=== PATIENT | female | born 1950 | race Caucasian/White ===

== ENCOUNTER 2023-02-03 14:56 | Observation (INO) | payer MEDICARE ==
[~2023-02-03 14:56] MED LIST: Iopamidol 370 76% 100 ML VIAL ONE
[2023-02-03] MEDS ORDERED: Aspirin Chewable 81 MG TAB ONE (15:04)
[2023-02-03 15:19] LABS: #Basophils 0.1 10x3/uL (0.0-0.2); #Eosinphils 0.2 10x3/uL (0.0-0.5); #Monocytes 0.4 10x3/uL (0.0-1.1); #Neutrophils 7.3 10x3/uL (1.5-8.4); %Basophils 0.6 % (0.0-2.0); %Lymphocytes 20.4 % (18.0-47.0); %Monocytes 4.2 % (0.0-10.0); %Neutrophils 72.5 % (40.0-75.0); Hematocrit 38.3 % (34.9-44.5); Hemoglobin 12.5 g/dL (12.0-15.5); Mean Corpuscular HGB CONC 32.6 g/dL (32.0-36.0); Mean Corpuscular Hemoglobin 29.3 pg (27.0-33.0); Mean Corpuscular Volume 89.7 fl (81.6-98.3); Mean Platelet Volume 9.8 fl (7.4-10.4); Platelet Count 326 10x3/uL (150-450); RBC Distribution Width 12.8 % (11.5-14.5); Red Blood Cell (RBC) Count 4.27 10x6/uL (3.90-5.03); White Blood Cell (WBC) Count 10.1 10x3/uL (3.5-10.5)
[2023-02-03 15:23] LABS: ALT (SGPT) 16 U/L (8-55); AST (SGOT) 15 U/L (5-34); Albumin 4.3 g/dL (3.4-4.8); Alkaline Phosphatase 71 U/L (40-110); Anion Gap 18 mmol/L (10-20); BUN (Urea Nitrogen) 22 mg/dL (9.8-20.1); Bilirubin, Total 0.3 mg/dL (0.2-1.2); Calc. Creatinine Clearance 0 mL/min (70-130); Calcium 9.2 mg/dL (7.8-10.44); Carbon Dioxide 20 mmol/L (23-31); Chloride 103 mmol/L (98-107); Estimated GFR 59; Globulin 2.4 g/dL (2.4-3.5); Glucose 240 mg/dL (83-110); Lipase 37 U/L (8-78); Potassium 4.2 mmol/L (3.5-5.1); Protein, Total 6.7 g/dL (5.8-8.1); Sodium 137 mmol/L (136-145)
[2023-02-03 15:27] LABS: Troponin I 0.029 ng/mL (< 0.028)
[2023-02-03] MEDS ORDERED: Ondansetron PF 4 MG/2 ML Vial ONE (15:27)
[2023-02-03] MEDS ORDERED: Morphine 4 MG/ML VIAL ONE ×2 (15:27→16:51)
[2023-02-03] MEDS ORDERED: Clopidogrel Bisulfate 75 MG TAB ONE (16:51)
[2023-02-03] MEDS ORDERED: Ondansetron ODT 4 MG TAB PO PRN (17:10)
[2023-02-03] MEDS ORDERED: Acetaminophen 325 MG TAB PO PRN (17:10)
[2023-02-03 18:18] LABS: Troponin I 0.092 ng/mL (< 0.028)
[2023-02-03 19:55] VITALS: BMI 36.3
[2023-02-03] MEDS: Nitroglycerin 0.4 MG TAB (25 Tab Bottle) SL PRN ×2 (20:44→22:44)
[2023-02-03 21:58] LABS: Troponin I 0.517 ng/mL (< 0.028)
[2023-02-04 04:45] LABS: #Basophils 0.1 10x3/uL (0.0-0.2); #Eosinphils 0.3 10x3/uL (0.0-0.5); #Monocytes 0.6 10x3/uL (0.0-1.1); #Neutrophils 4.5 10x3/uL (1.5-8.4); %Basophils 0.8 % (0.0-2.0); %Lymphocytes 37.1 % (18.0-47.0); %Monocytes 6.9 % (0.0-10.0); %Neutrophils 51.9 % (40.0-75.0); Hematocrit 34.2 % (34.9-44.5); Mean Corpuscular HGB CONC 32.2 g/dL (32.0-36.0); Mean Corpuscular Volume 90.2 fl (81.6-98.3); Mean Platelet Volume 9.9 fl (7.4-10.4); Platelet Count 284 10x3/uL (150-450); RBC Distribution Width 12.9 % (11.5-14.5); Red Blood Cell (RBC) Count 3.79 10x6/uL (3.90-5.03); White Blood Cell (WBC) Count 8.6 10x3/uL (3.5-10.5)
[2023-02-04 05:01] LABS: Anion Gap 15 mmol/L (10-20); BUN (Urea Nitrogen) 24 mg/dL (9.8-20.1); Calc. Creatinine Clearance 81 mL/min (70-130); Calcium 8.8 mg/dL (7.8-10.44); Carbon Dioxide 22 mmol/L (23-31); Chloride 105 mmol/L (98-107); Estimated GFR 67; Glucose 138 mg/dL (83-110); Potassium 4.2 mmol/L (3.5-5.1); Sodium 138 mmol/L (136-145)
[2023-02-04] MEDS: Nitroglycerin 0.4 MG TAB (25 Tab Bottle) SL PRN (06:48)
[2023-02-04] MEDS ORDERED: Dextrose 50% Abboject 50 ML SYRINGE SLOW IVP PRN (07:56)
[2023-02-04] MEDS ORDERED: Dextrose 5% in Water 1,000 ML IV PRN (07:56)
[2023-02-04] MEDS ORDERED: Glucagon 1 MG/ML KIT IM PRN (07:56)
[2023-02-04] MEDS ORDERED: HumaLOG 300 UNITS/3 ML VIAL SC PRN ×2 (07:56)
[2023-02-04] MEDS: FLUoxetine HCl 20 MG CAP PO SCH (08:58)
[2023-02-04] MEDS: Aspirin Chewable 81 MG TAB PO SCH (08:59)
[2023-02-04] MEDS: busPIRone HCl 5 MG TAB PO SCH ×2 (08:59→21:31)
[2023-02-04] MEDS ORDERED: Metoprolol Tartrate 25 MG TAB PO SCH ×2 (09:00→10:30)
[2023-02-04] MEDS ORDERED: Levothyroxine Sodium 125 MCG TAB PO SCH (09:00)
[2023-02-04] MEDS: Lactated Ringer's 1,000 ML IV SCH ×2 (09:20→18:46)
[2023-02-04] MEDS ORDERED: Communication Order-Pharmacy FS SCH (11:15)
[2023-02-04] MEDS: Nitroglycerin 2% Ointment 1 INCH/1 GM Packet TOP SCH ×2 (13:24→21:32)
[2023-02-04] MEDS ORDERED: Atorvastatin Calcium 20 MG TAB PO SCH (21:00)
[2023-02-04] MEDS ORDERED: Atorvastatin Calcium 40 MG TAB PO SCH (21:00)
[2023-02-04] MEDS: Metoprolol Tartrate 25 MG TAB PO SCH (21:31)
[2023-02-05 04:36] LABS: #Basophils 0.1 10x3/uL (0.0-0.2); #Eosinphils 0.3 10x3/uL (0.0-0.5); #Monocytes 0.6 10x3/uL (0.0-1.1); #Neutrophils 4.1 10x3/uL (1.5-8.4); %Basophils 0.6 % (0.0-2.0); %Eosinophils 3.5 % (0.0-6.0); %Lymphocytes 35.8 % (18.0-47.0); %Monocytes 7.1 % (0.0-10.0); %Neutrophils 52.7 % (40.0-75.0); Hematocrit 36.3 % (34.9-44.5); Hemoglobin 11.7 g/dL (12.0-15.5); Mean Corpuscular HGB CONC 32.2 g/dL (32.0-36.0); Mean Corpuscular Hemoglobin 29.2 pg (27.0-33.0); Mean Corpuscular Volume 90.5 fl (81.6-98.3); Platelet Count 309 10x3/uL (150-450); RBC Distribution Width 12.5 % (11.5-14.5); Red Blood Cell (RBC) Count 4.01 10x6/uL (3.90-5.03); White Blood Cell (WBC) Count 7.8 10x3/uL (3.5-10.5)
[2023-02-05 04:47] LABS: PTT 36.5 sec (22.0-33.0); Prothrombin Time 10.9 sec (9.5-12.1)
[2023-02-05 04:52] LABS: ALT (SGPT) 14 U/L (8-55); AST (SGOT) 27 U/L (5-34); Alkaline Phosphatase 61 U/L (40-110); Anion Gap 15 mmol/L (10-20); BUN (Urea Nitrogen) 14 mg/dL (9.8-20.1); Bilirubin, Direct 0.2 mg/dL (0.1-0.3); Bilirubin, Total 0.4 mg/dL (0.2-1.2); Calc. Creatinine Clearance 91 mL/min (70-130); Calcium 9.5 mg/dL (7.8-10.44); Carbon Dioxide 25 mmol/L (23-31); Chloride 101 mmol/L (98-107); Estimated GFR 78; Globulin 2.6 g/dL (2.4-3.5); Glucose 143 mg/dL (83-110); Magnesium 1.5 mg/dL (1.6-2.6); Protein, Total 6.6 g/dL (5.8-8.1); Sodium 137 mmol/L (136-145)
[2023-02-05 05:14] LABS: Cardiac Risk 2.8 (Less than 4.5); Cholesterol 159 mg/dl (< 200 Desired); HDL Cholesterol 57 mg/dL (>60 Neg Risk); LDL Cholesterol, Calculated 55 mg/dL; Triglycerides 237 mg/dL (Less than 150)
[2023-02-05] MEDS ORDERED: Levothyroxine Sodium 125 MCG TAB PO SCH (06:00)
[2023-02-05] MEDS: Lactated Ringer's 1,000 ML IV SCH (06:06)
[2023-02-05] MEDS: Aspirin Chewable 81 MG TAB PO SCH (06:07)
[2023-02-05] MEDS: busPIRone HCl 5 MG TAB PO SCH (06:08)
[2023-02-05] MEDS: FLUoxetine HCl 20 MG CAP PO SCH (06:08)
[2023-02-05] MEDS: Metoprolol Tartrate 25 MG TAB PO SCH (06:08)
[2023-02-05] MEDS: Nitroglycerin 2% Ointment 1 INCH/1 GM Packet TOP SCH ×2 (06:09→15:32)
[2023-02-05] MEDS ORDERED: Lisinopril 2.5 MG TAB PO SCH ×2 (06:15→09:00)
[2023-02-05] MEDS ORDERED: Lidocaine 1% (PF) 30 ML VIAL ONE (07:01)
[2023-02-05] MEDS ORDERED: Nitroglycerin 50 MG/250 ML BOT 250 ML ONE (07:01)
[2023-02-05] MEDS ORDERED: Midazolam HCl 2 mg/2 ml Vial ONE (07:02)
[2023-02-05] MEDS ORDERED: fentaNYL 50 mcg/mL 1 mL Vial ONE (07:02)
[2023-02-05] MEDS ORDERED: Adenosine 6 MG/2 ML VIAL ONE (07:02)
[2023-02-05] MEDS ORDERED: Heparin 10,000 UNITS/ 10 ML VIAL ONE (07:02)
[2023-02-05] MEDS ORDERED: Verapamil 5 MG/2 ML VIAL ONE (07:06)
[2023-02-05] MEDS ORDERED: Acetaminophen/Codeine 30-300mg Tablet PO PRN ×2 (08:10)
[2023-02-05] MEDS ORDERED: Sodium Chloride 0.9% 200 ML IV PRN (08:10)
[2023-02-05] MEDS ORDERED: Nitroglycerin 0.4 MG TAB (25 Tab Bottle) SL PRN (08:10)
[2023-02-05] MEDS ORDERED: Lisinopril 5 MG TAB PO SCH (09:00)
[2023-02-05] MEDS ORDERED: NIFEdipine XL 30 MG TAB PO SCH (09:00)
[2023-02-05] MEDS ORDERED: Iopamidol 300 61% 100 ML VIAL FS ONE (11:27)
[2023-02-05 13:38] LABS: Hemoglobin A1c 6.6 % (4.0-6.0)
[2023-02-05 20:52] VITALS: TEMP 98.3
[2023-02-05 21:10] VITALS: BP 145/69
[2023-02-06] MEDS ORDERED: Lisinopril 2.5 MG TAB PO SCH (09:00)
== END 2023-02-05 16:36 | disposition home or self-care (01) ==
LOC: CSHERS 14:56 → CSHTELE 17:04
PROVIDERS: ADMIT Internal Medicine; ATTEND Family Medicine
PROC: 4A023N7 Measurement of Cardiac Sampling and Pressure, Left Heart, Percutaneous Approach (ICD-10-PCS; principal; 2023-02-03)
PROC: B205YZZ Plain Radiography of Left Heart using Other Contrast (ICD-10-PCS; 2023-02-03)
DX: I24.9 Acute ischemic heart disease, unspecified (principal); R07.2 Precordial pain; E11.9 Type 2 diabetes mellitus without complications; I10 Essential (primary) hypertension; E03.9 Hypothyroidism, unspecified; E78.5 Hyperlipidemia, unspecified; F32.A Depression, unspecified; Z96.652 Presence of left artificial knee joint; Z88.0 Allergy status to penicillin; Z88.2 Allergy status to sulfonamides; Z90.89 Acquired absence of other organs; Z90.49 Acquired absence of other specified parts of digestive tract; Z87.59 Personal history of other complications of pregnancy, childbirth and the puerperium; Z79.890 Hormone replacement therapy; Z79.84 Long term (current) use of oral hypoglycemic drugs; Z79.899 Other long term (current) drug therapy
CPT/HCPCS: 71045; 71275; 74174; 80048; 80053; 80061; 80076; 82962 ×2; 83036; 83690; 83735; 84484 ×2; 85025 ×2; 85610; 85730; 86850; 86900; 86901; 93005 ×2; 93306; 93452; 93458; 93567; 94760 ×2; 96372 ×3; 96374; 96375; 96376; 99285; C1769; C1894; G0378 ×4; J3010; 36415; 36416; 84443; 93010; 99152; 99153; J0153; J1644; J1650; J1815; J2001; J2250; J2270; J2405; J7120; Q9967